=== PATIENT | female | born 1935 | race Caucasian/White ===

== ENCOUNTER 2016-09-02 07:21 | Day surgery (SDC) | payer MEDICARE ==
[2016-09-02] MEDS ORDERED: PROPOFOL 10 MG/ML VIAL IV ONE (14:00)
[2016-09-02] MEDS ORDERED: LIDOCAINE 2% MDV (20MG/ML) 20ML VIAL IV ONE (14:00)
[2016-09-02] MEDS ORDERED: FENTANYL PF 100MCG/2ML VIAL IV ONE (14:00)
--- NOTE | 2016-09-06 14:32 | Operative Note ---
DATE OF SURGERY: 09/02/16 OPERATION: Esophagogastroduodenoscopy. REFERRING PHYSICIAN: Nikos Ventura D.O. INDICATION: Upper abdominal pain and anemia. Rule out upper gastrointestinal tract pathology. ANESTHESIA: Intravenous sedation was administered by the Department of Anesthesiology and included Diprivan titrated to effect. PROCEDURE: Following informed consent from this alert individual, including a discussion of the risks and benefits of the procedure and an opportunity for the patient to ask questions, the patient was in the left lateral decubitus position. The Olympus UIC589 video endoscope was inserted into the esophagus without resistance. The proximal esophagus has a normal appearance with normal folds and distensibility. The distal esophagus as well was free from mucosal changes. There was a 3.0 to 4.0 cm hiatal hernia sac noted which was free from mucosal abnormalities. The subdiaphragmatic stomach was entered and was found to be unremarkable. There were no ulcers or erosions noted. The pylorus was patent. The duodenal bulb, sweep, and descending duodenum were examined in a serial fashion and were found to be normal. The endoscope was then drawn back into the body of the stomach. Retroflexion was accomplished following air insufflation and this failed to demonstrate any changes. The endoscope was then straightened and withdrawn back through the esophagus and hiatal hernia. No mucosal abnormalities were detected. The instrument was removed. The patient tolerated the procedure well and was returned to the recovery area in stable condition. IMPRESSION: 1. A 3.0 TO 4.0 CM HIATAL HERNIA. 2. AN OTHERWISE UNREMARKABLE ESOPHAGOGASTRODUODENOSCOPY. RECOMMENDATIONS: The patient will undergo a colonoscopy at this time. Further recommendations will be forthcoming. COURT GUTIERRES cc: Nikos Ventura D.O. Job Number: [id number] MTDD
--- NOTE | 2016-09-06 14:45 | Operative Note ---
DATE OF SURGERY: 09/02/2016. REFERRING PHYSICIAN: Nikos Ventura D.O. PROCEDURE: Colonoscopy to the cecum. INDICATION: Abdominal pain which has clinically resolved and mild anemia. The patient also has a history of colon polyps. Rule out primary colon pathology. ANESTHESIA: Intravenous sedation was administered by the Department of Anesthesiology and included Diprivan titrated to effect. PROCEDURE: Following informed consent from this alert individual, including a discussion of the risks and benefits of the procedure and an opportunity for the patient to ask questions, the patient was in the left lateral decubitus position. A digital rectal examination was performed. No abnormalities were detected. A hypertrophied papilla was palpable. Following this, the Olympus PCF-180 video colonoscope was inserted into the rectum without resistance. The rectal mucosa had a normal appearance with normal folds and distensibility. The colonoscope was advanced up through the bowel to the level of the cecum without much difficulty. Scattered diverticulosis was noted throughout the sigmoid colon. No mucosal changes were appreciated on initial inspection. The cecum was defined by noting the appendiceal orifice and ileocecal valve. From the base of the cecum, the colonoscope was then withdrawn back through the bowel re-examining the mucosa upon withdrawal. Again sigmoid diverticulosis was evident. There was a diminutive 3.0 mm polyp noted in the rectum which was removed with biopsy forceps. Retroflexion in the rectum revealed a hypertrophied anal papilla. No other changes were noted. The instrument was removed. The patient tolerated the procedure well and was returned to the recovery area in stable condition. IMPRESSION: 1. Sigmoid diverticulosis. 2. Hypertrophied anal papilla. 3. A 3.0 mm rectal polyp removed with biopsy forceps. RECOMMENDATIONS: The patient was advised that she should receive a copy of her pathology report at home in the next two to three weeks. If not, she was asked to call my office to review the results of testing done today. She will follow up with Dr. Nikos Ventura. COURT GUTIERRES D.O. Date Time cc: Nikos Ventura D.O. Job Number: [id number] MTDD
== END 2016-09-02 09:22 | disposition home or self-care (01) ==
LOC: HOP 07:21
PROVIDERS: ATTEND Internal Medicine Gastroenterology
DX: Z86.010 Personal history of colon polyps (principal); K62.1 Rectal polyp; K62.89 Other specified diseases of anus and rectum; K57.30 Diverticulosis of large intestine without perforation or abscess without bleeding; R10.9 Unspecified abdominal pain; K44.9 Diaphragmatic hernia without obstruction or gangrene; I10 Essential (primary) hypertension; I48.91 Unspecified atrial fibrillation; Z79.01 Long term (current) use of anticoagulants; E11.9 Type 2 diabetes mellitus without complications; Z79.84 Long term (current) use of oral hypoglycemic drugs; E03.9 Hypothyroidism, unspecified
CPT/HCPCS: 45380; 43235; 00810; J3010